=== PATIENT | male | born 1995 | race Caucasian/White ===

== ENCOUNTER 2020-01-13 13:36 | Emergency (ER) | payer BC, SELFPAY ==
[~2020-01-13 13:36] MED LIST: Sterile Water Irrigation 1,000 ML BOT ONE
[2020-01-13] MEDS ORDERED: Lidocaine 1% 20 ML MDV ONE (13:40)
[2020-01-13] MEDS ORDERED: Bacitracin 1 PK ONE (14:22)
--- NOTE | 2020-01-14 07:50 | RAD ---
LEFT THUMB THREE VIEWS: Indications: Cut left thumb with a chainsaw. Comparison: None. FINDINGS: No acute fracture is evident. There is soft tissue swelling involving the left thumb. No radiopaque f oreign body is demonstrated. IMPRESSION: No acute osseous abnormality. POS: [facility]
== END 2020-01-13 15:00 | disposition home or self-care (01) ==
LOC: MADERS 13:36
DX: S61.012A Laceration without foreign body of left thumb without damage to nail, initial encounter (principal); F41.9 Anxiety disorder, unspecified; F32.9 Major depressive disorder, single episode, unspecified; X58.XXXA Exposure to other specified factors, initial encounter
CPT/HCPCS: 12002; J2001; Q4049